=== PATIENT | female | born 1960 | race Caucasian/White ===

== ENCOUNTER → 2017-01-23 | Outpatient (CLI) | payer MEDICARE, OTHER ==
[2017-01-23 15:50] LABS: PROTHROMBIN TIME 16.3 SEC (11.4-15.4)
== END ==
LOC: OD 13:28
DX: Z79.01 Long term (current) use of anticoagulants (principal); I50.22 Chronic systolic (congestive) heart failure; Z95.2 Presence of prosthetic heart valve; I42.9 Cardiomyopathy, unspecified
CPT/HCPCS: 36415; 85610